=== PATIENT | female | born 1985 | race Caucasian/White ===

== ENCOUNTER 2016-11-08 09:31 | Emergency (ER) | payer MEDICAID, OTHER ==
[~2016-11-08] VITALS: Ht 160 cm; Wt 107.5 kg
[~2016-11-08 09:31] MED LIST: PNV1TAB.3 PO; PREN-39 PO
[2016-11-08 09:51] VITALS: Ht 160 cm; Wt 107.5 kg
[2016-11-08 11:22] LABS: ADD SCAN DIFF NO
[2016-11-08 11:25] LABS: BASOPHIL # 0.1 10^3/ul (0.0-0.1); BASOPHILS % 0.7 % (0.0-2.0); EOSINOPHILS # 0.2 10^3/ul (0.0-0.5); EOSINOPHILS % 1.8 % (0.0-7.0); HEMATOCRIT 40.9 % (37.0-47.0); LYMPHOCYTES # 2.9 10^3/ul (0.8-2.9); MEAN CORPUSCULAR HEMOGLOBIN 26.4 pg (29.0-33.0); MEAN CORPUSCULAR HGB CONC 31.8 g/dl (32.0-37.0); MEAN PLATELET VOLUME 9.3 fl (7.4-10.4); MONOCYTE # 0.5 10^3/ul (0.3-0.9); MONOCYTES % 4.9 % (0.0-11.0); NEUTROPHILS % 65.2 % (39.0-77.0); PLATELET COUNT 332 10^3/UL (140-415); RED BLOOD COUNT 4.93 10^6/ul (4.20-5.40); RED CELL DISTRIBUTION WIDTH 14.9 % (11.5-14.5); WHITE BLOOD COUNT 10.7 10^3/ul (4.8-10.8)
[2016-11-08 11:28] LABS: URINE BLOOD (Dip) POC 2+ (NEGATIVE)
[2016-11-08 11:41] LABS: ALBUMIN/GLOBULIN RATIO 1.14; CALCIUM 9.5 mg/dl (8.4-10.2); CREATININE 0.5 mg/dl (0.44-1.00); POTASSIUM 4.1 mmol/L (3.5-5.1); TOTAL PROTEIN 7.5 g/dl (6.1-8.1)
--- NOTE | 2016-11-08 12:11 | RADRPT ---
PROCEDURE: US Pelvis CLINICAL INDICATION: Vaginal bleeding TECHNIQUE: Sonographic evaluation of the pelvis was performed utilizing both transabdominal and tr ansvaginal technique. Curved array transabdominal transducer technique as well as a high frequency endovaginal probe was utilized. Images were reviewed on the high-resolution PACS workstation. COMPARISON: CT abdomen and pelvis dated 05/18/2013 FINDINGS: The uterus is normal in size, echogenicity, and morphology measuring 9.9 x 5.4 x 5.9 cm in dimension . The uterus is anteverted in normal position. The endometrium is normal for a menstrual age fema le measuring 8.4 mm in diameter. There are divergent uterine horns. The fundal contour is normal o n prior CT abdomen and pelvis. The right ovary is not visualized. The left ovary measures 4.5 x 2.8 x 2.9 cm in dimension. The le ft ovary is mildly enlarged with multiple follicles.. Normal Doppler flow is demonstrated. There a re no adnexal masses. There is no significant free fluid in the pelvis. IMPRESSION: 1. The left ovary is mildly enlarged with multiple follicles. The right ovary is not visualized. Findings are nonspecific, but can be seen with polycystic ovarian syndrome. 2. 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 RPTAT: HH .Brigida Simpson MD, Date Time Electronically viewed and signed by .Brigida Simpson MD, MD on 11/08/2016 12:10 .G/
[2016-11-08] MEDS ORDERED: MEDR10TA2 PO (12:24)
--- NOTE | 2016-11-08 12:29 | ERD ---
ER Documentation Chief Complaint Date/Time DATE: 11/08/16 TIME: 12:28 Chief Complaint HEAVY VAGINAL BLEEDING AND CRAMPING X26 DAYS HPI This 4-year-old female presents with vaginal bleeding for last month. She had normal periods prior to this. She had similar episode a few years ago and improved with treatment of some unspecified medication. She is under stress. She denies any current control pills denies . She denies any fevers, vomiting, significant abdominal pain. ROS All systems reviewed and are negative except as per history of present illness. Medications Home Meds Active Scripts Medroxyprogesterone Acetate* (Provera*) 10 Mg Tablet, 10 MG PO DAILY for 7 Days , TAB Prov:ZEESHAN BROWN MD 11/08/16 Reported Medications Pnv #14/Ferrous Fum/Folic Acid (COMPLETENATE TABLET CHEW) 1 Each Tab.chew, 1 EACH PO DAILY 03/20/13 Vits W-Ca,Fe,Fa(<1MG) ( Vitamins) 1 Tab Tablet, 1 TAB PO DAILY 03/08/13 Allergies Allergies: Coded Allergies: No Known Allergy (Unverified , 03/08/13) PMhx/Soc Medical and Surgical Hx: pt denies Medical Hx, pt denies Surgical Hx History of Surgery: Yes (CSECTION X1, 03/2013) Anesthesia Reaction: No Hx Neurological Disorder: No Hx Respiratory Disorders: No Hx Cardiac Disorders: No Hx Psychiatric Problems: No Hx Miscellaneous Medical Probl: No Hx Alcohol Use: No Hx Substance Use: No Hx Tobacco Use: No Smoking Status: Never smoker Physical Exam Vitals Vital Signs Date Time Temp Pulse Resp B/P Pulse Ox O2 Delivery O2 Flow Rate FiO2 11/08/16 09:51 97.8 968 18 146/95 97 Physical Exam Const: [] Alert, morbidly obese. Head: Atraumatic Eyes: Normal Conjunctiva ENT: Normal External Ears, Nose and Mouth. Neck: Full range of motion..~ No meningismus. Resp: Clear to auscultation bilaterally Cardio: Regular rate and rhythm, no murmurs Abd: Soft, non tender, non distended. Normal bowel sounds Skin: No petechiae or rashes Back: No midline or flank tenderness Ext: No cyanosis, or edema Neur: Awake and alert Psych: Normal Mood and Affect Result Diagram: 11/08/16 1102 11/08/16 1105 Results 24 hrs Laboratory Tests Test 11/08/16 11:02 11/08/16 11:05 11/08/16 11:29 White Blood Count 10.710^3/ul Red Blood Count 4.9310^6/ul Hemoglobin 13.0g/dl Hematocrit 40.9% Mean Corpuscular Volume 83.0fl Mean Corpuscular Hemoglobin 26.4pg Mean Corpuscular Hemoglobin Concent 31.8g/dl Red Cell Distribution Width 14.9% Platelet Count 22913^3/UL Mean Platelet Volume 9.3fl Neutrophils % 65.2% Lymphocytes % 27.0% Monocytes % 4.9% Eosinophils % 1.8% Basophils % 0.7% Nucleated Red Blood Cells % 0.0/100WBC Neutrophils # 7.010^3/ul Lymphocytes # 2.910^3/ul Monocytes # 0.510^3/ul Eosinophils # 0.210^3/ul Basophils # 0.110^3/ul Nucleated Red Blood Cells # 0.010^3/ul Sodium Level 138mmol/L Potassium Level 4.1mmol/L Chloride Level 105mmol/L Carbon Dioxide Level 26mmol/L Anion Gap 11 Blood Urea Nitrogen 12mg/dl Creatinine 0.50mg/dl Glucose Level 135mg/dl Calcium Level 9.5mg/dl Total Bilirubin 0.0mg/dl Direct Bilirubin 0.00mg/dl Indirect Bilirubin 0.0mg/dl Aspartate Amino Transf (AST/SGOT) 24IU/L Alanine Aminotransferase (ALT/SGPT) 38IU/L Alkaline Phosphatase 64IU/L Total Protein 7.5g/dl Albumin 4.0g/dl Globulin 3.50g/dl Albumin/Globulin Ratio 1.14 Bedside Urine pH (LAB) 5.5 Bedside Urine Protein (LAB) Negative Bedside Urine Glucose (UA) Negative Bedside Urine Ketones (LAB) Negative Bedside Urine Blood 2+ Bedside Urine Nitrite (LAB) Negative Bedside Urine Leukocyte Esterase (L Negative Procedures/MDM CBC and CMP are normal. HCG is negative. Pelvic ultrasound shows possible bicornuate uterus and multiple ovarian follicles suggestive of polycystic ovarian syndrome. There is no additional acute findings. Patient has signs and symptoms of excessive vaginal bleeding and signs of possible polycystic ovaries. She will be treated with a short course of Provera and instructions to follow-up with primary doctor for further evaluation treatment. She should return for fevers, vomiting, new worsening symptoms. Signs or symptoms do not suggest , appendicitis, acute abdomen, anemia, additional emergent causes of presenting complaints. The patient was stable with no new complaints during the ER course. Clinically, there is no current evidence to suggest meningitis, sepsis, acute abdomen, pneumonia, acute coronary syndrome, pulmonary embolism, or any other emergent condition appearing to require further evaluation or hospitalization. The patient should certainly return for any new or worsening symptoms per the aftercare instructions. They should otherwise follow-up with her primary care doctor for reevaluation this week. Departure Diagnosis: Primary Impression: Vaginal bleeding Condition: Stable Patient Instructions: What Is Polycystic Ovary Syndrome?, Dysfunctional Uterine Bleeding Additional Instructions: No evidence of anemia on blood work. Ultrasound shows signs of possible polycystic ovaries which may require long-term additional treatment. See OB or primary doctor for follow-up. Recheck otherwise for fevers, new worsening symptoms ZEESHAN BROWN MD Nov 08, 2016 12:29
[2016-11-08 12:50] VITALS: BP 142/92; PULSE 75; RESP 18; TEMP 97.8
== END 2016-11-08 12:50 | disposition home or self-care (01) ==
LOC: FTE 09:31
DX: N93.8 Other specified abnormal uterine and vaginal bleeding (principal)
CPT/HCPCS: 76830; 76856; 80053; 81003; 85025

== ENCOUNTER 2016-11-23 10:59 | Emergency (ER) | payer OTHER ==
[~2016-11-23] VITALS: Ht 165.1 cm; Wt 108.0 kg
[~2016-11-23 10:59] MED LIST changes: +MEDR10TA2 PO
[2016-11-23 11:01] VITALS: Ht 165.1 cm; Wt 108.0 kg
[2016-11-23] MEDS ORDERED: NORG1TAB14 PO (13:04)
--- NOTE | 2016-11-23 13:12 | ERD ---
ER Documentation Chief Complaint Date/Time DATE: 11/23/16 TIME: 13:08 Chief Complaint irregular vag bleeding, seen here before c/o same HPI 31-year-old female patient with a past medical history of possible polycystic ovarian disease presents to the ED complaining of irregular vaginal bleeding that started 26 days before November 08, 2016. Reports that she was seen here and received a full workup on November 08, 2016. States that she is taking Tylenol and Ibuprofen with relief of her symptoms. Reports that she took the Provera and it helped with her symptoms. States that the vaginal bleeding did stop after the 7 day course of Provera. Reports that the vaginal bleeding started again 3 days after. Reports that she only gets crampy pelvic pain when she has worsening vaginal bleeding. Denies any weakness, numbness or tingling, fever, chills, abdominal pain, chest pain, shortness of breath, nausea, vomiting, diarrhea. Patient reports she has insurance issues and is trying to see an OB/ [employer]. ROS All systems reviewed and are negative except as per history of present illness. Medications Home Meds Active Scripts Norgestimate-Ethinyl Estradiol (Sprintec 28 Day Tablet) 1 Each Tablet, 1 EACH PO ONCE, #2 PKT 1st packet (28 day) - take 3 pills daily until you reach the placebo pills. Do not take the placebo pills. Next, start 2nd packet - take as indicated, once daily. Prov:CRYSTAL SHAH PA-C 11/23/16 Medroxyprogesterone Acetate* (Provera*) 10 Mg Tablet, 10 MG PO DAILY for 7 Days , TAB Prov:ZEESHAN BROWN MD 11/08/16 Reported Medications Pnv #14/Ferrous Fum/Folic Acid (COMPLETENATE TABLET CHEW) 1 Each Tab.chew, 1 EACH PO DAILY 03/20/13 Vits W-Ca,Fe,Fa(<1MG) ( Vitamins) 1 Tab Tablet, 1 TAB PO DAILY 03/08/13 Allergies Allergies: Coded Allergies: No Known Allergy (Unverified , 11/23/16) PMhx/Soc History of Surgery: Yes (CSECTION X1, 03/2013) Anesthesia Reaction: No Hx Neurological Disorder: No Hx Respiratory Disorders: No Hx Cardiac Disorders: No Hx Psychiatric Problems: No Hx Miscellaneous Medical Probl: No Hx Alcohol Use: No Hx Substance Use: No Hx Tobacco Use: No Smoking Status: Never smoker Physical Exam Vitals Vital Signs Date Time Temp Pulse Resp B/P Pulse Ox O2 Delivery O2 Flow Rate FiO2 11/23/16 11:01 99.7 106 20 155/78 99 Physical Exam Const: Uhe-iys-dbegvpzgt, well-nourished. In no acute distress. Head: Atraumatic, normocephalic Eyes: Normal Conjunctiva without injection. No purulent discharge. ENT: Normal external ear, nose. Moist oropharynx without tonsillar exudates. Non -erythematous pharynx. Uvula midline. No drooling. No trismus. Neck: No cervical midline tenderness. Full range of motion. No meningismus. No cervical lymphadenopathy. No JVD. Resp: Clear to auscultation bilaterally. No wheezing, rhonchi, rales, or crackles. No accessory muscle use. No retractions. Cardio: Regular rate and rhythm. No murmurs, rubs or gallops. Abd: Soft, nontender, non distended. Normal bowel sounds. No palpable masses. No rebound tenderness. No guarding. Negative McBurney's point. Negative psoas sign. Negative obturator sign. Skin: No petechiae or rashes Back: No midline tenderness. No CVA tenderness. Ext: No cyanosis, or edema. Neur: Awake and alert. Normal gait. Normal coordination. Psych: Normal Mood and Affect Procedures/MDM This is a 31-year-old female patient with no significant past medical history presents to the ED complaining of vaginal bleeding that started again 3 days ago after taking Provera with success. Patient is afebrile nontoxic appearing. Patient has normal vital signs. This case was discussed with my supervising physician, Dr. Brown who stated that we can prescribe patient control since the Provera was working patient symptoms. Patient likely has possible dysfunctional uterine bleeding. Low suspicion for symptomatic anemia, ectopic , sepsis, PID, appendicitis, ovarian torsion, tubo-ovarian abscess, surgical abdomen, or other emergent conditions. Dr. Brown agreed with the management and discharge plan. Discharge medications: Sprintec as indicated Patient to follow up with [facility] in 2 days for further evaluation and treatment. Patient is to return sooner to the ED for any worsening symptoms. Patient's questions were answered. Patient understood and agreed with discharge plan. Departure Diagnosis: Primary Impression: Vaginal bleeding Condition: Stable Patient Instructions: Dysfunctional Uterine Bleeding Referrals: [facility] YOU HAVE RECEIVED A MEDICAL SCREENING EXAM AND THE RESULTS INDICATE THAT YOU DO NOT HAVE A CONDITION THAT REQUIRES URGENT TREATMENT IN THE EMERGENCY DEPARTMENT. FURTHER EVALUATION AND TREATMENT OF YOUR CONDITION CAN WAIT UNTIL YOU ARE SEEN IN YOUR DOCTORS OFFICE WITHIN THE NEXT 1-2 DAYS. IT IS YOUR RESPONSIBILITY TO MAKE AN APPOINTMENT FOR FOLOW-UP CARE. IF YOU HAVE A PRIMARY DOCTOR --you should call your primary doctor and schedule an appointment IF YOU DO NOT HAVE A PRIMARY DOCTOR YOU CAN CALL OUR PHYSICIAN REFERRAL HOTLINE AT IF YOU CAN NOT AFFORD TO SEE A PHYSICIAN YOU CAN CHOSE FROM THE FOLLOWING [facility] [address] [facility] [address] [facility] [address] [facility] [address] [facility] [address]. [facility] [address] [facility] [facility] YOU HAVE RECEIVED A MEDICAL SCREENING EXAM AND THE RESULTS INDICATE THAT YOU DO NOT HAVE A CONDITION THAT REQUIRES URGENT TREATMENT IN THE EMERGENCY DEPARTMENT. FURTHER EVALUATION AND TREATMENT OF YOUR CONDITION CAN WAIT UNTIL YOU ARE SEEN IN YOUR DOCTORS OFFICE WITHIN THE NEXT 1-2 DAYS. IT IS YOUR RESPONSIBILITY TO MAKE AN APPOINTMENT FOR FOLOW-UP CARE. IF YOU HAVE A PRIMARY DOCTOR --you should call your primary doctor and schedule and appointment IF YOU DO NOT HAVE A PRIMARY DOCTOR YOU CAN CALL OUR PHYSICIAN REFERRAL HOTLINE AT . IF YOU CAN NOT AFFORD TO SEE A PHYSICIAN YOU CAN CHOSE FROM THE FOLLOWING [facility] INSTITUTIONS: [facility] [address] [place] [address] [facility] [address] [place] [address] [facility] [address] [place] [address] [facility]RGENT [facility]/SPECIALTIES Additional Instructions: Call your [facility] TOMORROW for an appointment during the next 1-2 days.See the doctor sooner or return here if your condition worsens before your appointment time. CRYSTAL SHAH PA-C November 23, 2016 13:12
== END 2016-11-23 13:21 | disposition home or self-care (01) ==
LOC: FTE 10:59
DX: N93.9 Abnormal uterine and vaginal bleeding, unspecified (principal)

== ENCOUNTER 2017-07-22 20:16 | Emergency (ER) | END 2017-07-22 23:11 | disposition home or self-care (01) ==